=== PATIENT | male | born 1990 | race American Indian/Alaskan Native ===

== ENCOUNTER 2020-11-16 19:02 | Emergency (ER) | payer SELFPAY ==
[2020-11-16] MEDS ORDERED: LIDOCAINE (2%) 20 MG/1 ML VIAL 20 ML MDV INFILTRATI ONE (19:40)
[2020-11-16] MEDS ORDERED: HYDROcodone/ACETAMINOPHEN 10-325MG TAB PO ONE (19:42)
--- NOTE | 2020-11-16 20:04 | Emergency Department Report ---
Upper Extremity - HPI Chief Complaint: Extremity Injury, Upper Stated Complaint: LT INDEX FINGER INJURY Time Seen by Provider: 11/16/20 19:45 Upper Extremity: Left Index Finger Occurred When: Today Mechanism: Other (Was wrestling around playing and hit his finger resulting in) Symptoms: Yes Pain with Movement, Yes Deformity, Yes Limited Range of Movement, Yes Swelling, No Numbness, No Weakness, No Bruising/Ecchymosis, No Laceration or Abrasion ED Review of Systems ROS: Stated complaint: LT INDEX FINGER INJURY Other details as noted in HPI Comment: All other systems reviewed and negative ED Past Medical Hx - Past Medical History Previous Medical History?: No - Surgical History Past Surgical History?: No - Medications Home Medications: Home Medications Medication Instructions Recorded Confirmed Last Taken Type Ketorolac [Toradol] 10 mg PO Q6H PRN #10 tablet 11/16/20 Unknown Rx Upper Extremity Exam - Exam General: Vital signs noted. No distress. Alert and acting appropriately. Head and Torso: No HEENT Abnormality, No Neck Tenderness, No Chest/Lungs Abnormality, No Abdominal Tenderness, No Back Tenderness Shoulder Exam: Yes Normal Range of Motion in Shoulder, No Shoulder Tenderness, No Clavicle Tenderness, No Shoulder Deformity, No AC Joint Tenderness Arm Exam: No Arm/Humerus Tenderness, No Arm Deformity Elbow: No Elbow Tenderness, No Normal Range of Motion in Elbow, No Elbow Deformity Forearm: No Forearm Tenderness, No Forearm Deformity, No Pain with Pronation, No Pain with Supination Wrist: Yes Normal ROM in Wrist, No Wrist Tenderness, No Wrist Deformity, No Snuffbox Tenderness, No Pain with Axial Thumb Compression Hand: Yes Hand Tenderness, Yes Normal ROM in Digit(s), Yes Digit(s) Deformity (Left index finger), No Hand Deformity, No Digit Tenderness, No Tendon Dysfunction CMS Exam: No Broken Skin, No Normal Distal Pulses, No Normal Capillary Refill, No Normal Distal Sensation - Orthopedic Splinting/Casting Injury #1 Side: left Upper Extremity Injury Location: finger Upper Extremity Immobilizer: finger (other) Other Orthopedic Equipment: other Critical care attestation.: If time is entered above; I have spent that time in minutes in the direct care of this critically ill patient, excluding procedure time. ED Disposition Clinical Impression: Dislocation, finger closed Disposition: TO HOME OR SELFCARE Is pt being admited?: No Does the pt Need Aspirin: No Condition: Stable Instructions: Finger or Thumb Dislocation, [id number], Cast or Splint Care, Adult Prescriptions: Ketorolac [Toradol] 10 mg PO Q6H PRN #10 tablet PRN Reason: Pain Referrals: PRIMARY CARE, [Primary Care Provider] - 3-5 Days [facility] [Provider Group] - 3-5 Days
--- NOTE | 2020-11-16 20:05 | XRay Report ---
LEFT HAND 3 VIEW(S) INDICATION / CLINICAL INFORMATION: broken finger COMPARISON: None available. FINDINGS: BONES / JOINT(S): There is radial dislocation of the left index finger at the PIP joint. No acute fra cture is identified. SOFT TISSUES: No significant abnormality. ADDITIONAL FINDINGS: None. IMPRESSION: Dislocation of the left index finger PIP joint. No acute fracture is detected. Signer Name: Joni Jenkins MD Signed: 11/16/2020 8:01 PM Workstation Name: [id number]
[2020-11-16 20:54] VITALS: BP 135/78
--- NOTE | 2020-11-16 21:19 | XRay Report ---
LEFT FINGER(S) 2 VIEW(S) INDICATION / CLINICAL INFORMATION: post reduction COMPARISON: 11/16/2020 FINDINGS: BONES / JOINT(S): No acute fracture or subluxation. Anatomical joint alignment. No significant arthri tis. SOFT TISSUES: Moderate swelling throughout the index finger. ADDITIONAL FINDINGS: None. Signer Name: Alexis Tinoco MD Signed: 11/16/2020 9:14 PM Workstation Name: [id number]
== END 2020-11-16 20:57 | disposition home or self-care (01) ==
LOC: ED 19:02
DX: S63.251A Unspecified dislocation of left index finger, initial encounter (principal); Z79.899 Other long term (current) drug therapy; X58.XXXA Exposure to other specified factors, initial encounter; Y93.89 Activity, other specified; Y92.89 Other specified places as the place of occurrence of the external cause; Y99.8 Other external cause status
CPT/HCPCS: 99283